=== PATIENT | female | born 2000 | race African-American/Black ===

== ENCOUNTER 2020-11-12 20:42 | Day surgery (SDC) | payer OTHER ==
[2020-11-12] MEDS ORDERED: hydrALAZINE 20 MG/ML VIAL SLOW IVP PRN (20:52)
[2020-11-12 20:57] VITALS: BP 117/69; TEMP 98.6; BMI 36.8
--- NOTE | 2020-11-12 21:07 | PDOC.LDHP ---
Labor and Delivery H&P Chief complaint: contractions HPI: 19 y/o at 29w1d presents via EMS for ctx. Patient was seen in a freestanding ER and told she needed to go to [place]. Unfortunately, she went to the [facility], and had to be transferred here. Ctx started last night and have persisted all day. Denies VB, LOF, UTI sx, or decreased FM. Pt reports she was seen in an ED in September and had a cervical exam and was 1cm dilated. Has had care in [place] up until now, but has moved to [facility] and not established care here yet. ROS neg for HEENT, CV, pulm, GI, , neuro, psych, skin, musculoskeletal, or constitutional symptoms other than mentioned above. OB History Details: 1 prior term , complicated by Preeclampsia Current complications: none Past Medical History: None Current medications: pre-stephanie vitamins Previous surgical history: other (knee surgery) Allergies/Adverse Reactions: Allergies Allergy/AdvReac Type Severity Reaction Status Date / Time No Known Allergies Allergy Verified 11/12/20 20:52 Social history: none - Physical Exam Vital signs reviewed and normal: yes General: NAD, resting Lungs: nonlabored breathing Abdomen: gravid Extremeties: no edema FHT: category 1 (135, mod variability, + accels, no decels) [place] contractions every: rare - Vaginal Exam cm dilated: 1 Effacement: 25% Station: -3 - Assessment 19 y/o at 29w5d with no e/o PTL. Cervical exam unchanged from reported exam in September. FFN negative. status reassuring with reactive NST. - Plan -: D/c home with precautions. Advised to establish care here and keep all appointments.
[2020-11-12 22:23] LABS: FFN Internal QC Analyzer PASS (PASS); FFN Internal QC Cassette PASS (PASS); Fetal Fibronectin Negative (Negative)
== END 2020-11-12 20:47 | disposition home or self-care (01) ==
LOC: L&D/OP 20:42
PROVIDERS: ATTEND Obstetrics & Gynecology
DX: O47.03 False labor before 37 completed weeks of gestation, third trimester (principal); Z3A.29 29 weeks gestation of pregnancy
CPT/HCPCS: 82731; 99284